=== PATIENT | female | born 1995 | race Hispanic/Latino ===

== ENCOUNTER 2022-12-11 21:09 | Inpatient (IN) | payer OTHER ==
[~2022-12-11] VITALS: Ht 162.6 cm; Wt 57.4 kg
[2022-12-11] MEDS ORDERED: 0.9%NACL 1000ML 1,000 ML IV SCH (22:00)
[2022-12-11 22:11] LABS: BASOPHILS % (AUTO) 0.5 % (0.0-5.0); EOSINOPHILS % (AUTO) 0.2 % (0.0-8.0); HEMATOCRIT 41.3 % (36-48); LYMPHOCYTES % (AUTO) 20.6 % (21.0-51.0); MEAN CORPUSCULAR HGB CONC 32.4 g/dL (32.0-36.0); MEAN CORPUSCULAR VOLUME 83.3 fL (79-99); MONOCYTES % (AUTO) 6.8 % (3.0-13.0); NEUTROPHILS % (AUTO) 71.6 % (40.0-77.0); PLATELET COUNT (AUTO) 345 K/uL (130-400); RED BLOOD CELL COUNT(AUTO) 4.96 MIL/uL (4.00-5.50); RED CELL DISTRIBUTION WIDTH 14.3 % (11.0-15.5); WHITE BLOOD COUNT (AUTO) 8.6 K/uL (4.8-10.8)
[2022-12-11 22:15] LABS: BILIRUBIN,URINE NEGATIVE (NEGATIVE); COLOR,URINE YELLOW (YELLOW); GLUCOSE, URINE (UA) NEGATIVE (NEGATIVE); KETONES,URINE 60 mg/dL (NEGATIVE); LEUKOCYTE ESTERASE ,URINE 500 Leu/uL (NEGATIVE); NITRATE,URINE NEGATIVE (NEGATIVE); OCCULT BLOOD,URINE NEGATIVE (NEGATIVE); PROTEIN,URINE 30 mg/dL (NEGATIVE); UROBILINOGEN,URINE 0.2 mg/dL (0.2-1.0)
[2022-12-11 22:19] LABS: HCG,QUALITATIVE URINE NEGATIVE (NEGATIVE)
[2022-12-11 22:20] LABS: APPEARANCE,URINE SLIGHTLY CLOUDY (CLEAR)
[2022-12-11 22:21] LABS: AMPHET/METH SCREEN,URINE NEGATIVE (NEGATIVE); BARBITURATE SCREEN, URINE NEGATIVE (NEGATIVE); BENZODIAZEPINES SCREEN,URINE NEGATIVE (NEGATIVE); CANNABINOID SCREEN,URINE POSITIVE (NEGATIVE); CARBON DIOXIDE 25 mmol/L (21-32); CHLORIDE 101 mmol/L (101-111); COCAINE SCREEN,URINE NEGATIVE (NEGATIVE); CREATININE 0.7 mg/dL (0.5-1.5); GLOMERULAR FILTR. RATE CALC 120 mL/min (>90); GLUCOSE,RANDOM 104 mg/dL (70-105); OPIATE SCREEN,URINE NEGATIVE (NEGATIVE); PHENCYCLIDINE SCREEN,URINE NEGATIVE (NEGATIVE); POTASSIUM 3.4 mmol/L (3.5-5.1); SODIUM SERUM 138 mmol/L (136-145); UREA NITROGEN, BLOOD 8 mg/dL (7-18)
[2022-12-11 22:24] LABS: BACTERIA,URINE RARE /HPF (None Seen); MUCUS,URINE MANY LPF (None Seen); SQUAMOUS EPITHELIAL CELL,UR MANY /HPF (0-2); WBC,URINE 26-50 /HPF (0-1)
[2022-12-11 22:39] LABS: ALANINE AMINOTRANSFERASE 31 U/L (12-78); ALBUMIN 4.6 g/dL (3.5-5.0); ASPARTATE AMINOTRANSFERASE 19 U/L (10-37); TOTAL PROTEIN, SERUM 8.8 g/dL (6.0-8.3)
[2022-12-11 22:44] LABS: CRP QUANTITATIVE < 2.00 mg/L (0.00-9.0)
[2022-12-12] MEDS ORDERED: KETOROLAC 30MG VIAL (30MG/ML) IVP ONE
[2022-12-12] MEDS ORDERED: ACETAMINOPHEN 325 MG TAB PO PRN (01:30)
[2022-12-12] MEDS ORDERED: CEFTRIAXONE 1G VIAL IVPB SCH (01:30)
[2022-12-12] MEDS: 0.9%NACL 1000ML 1,000 ML IV SCH ×3 (01:37→20:21)
[2022-12-12 05:08] VITALS: BP 121/77
[2022-12-12 06:48] LABS: INR 1.01 (0.85-1.15)
[2022-12-12 06:49] LABS: PARTIAL THROMBOPLASTIN TIME 26.2 SEC (26.3-35.5)
[2022-12-12 08:00] VITALS: BP 117/68
[2022-12-12] MEDS ORDERED: SOLU-MEDROL 40MG VIAL IVP SCH (08:00)
[2022-12-12] MEDS ORDERED: AMPICILLIN 2GM+NS 100ML IV SCH (08:00)
[2022-12-12] MEDS ORDERED: 0.9% NACL 250ML IV SCH (08:00)
[2022-12-12] MEDS ORDERED: VANCOMYCIN 1G VIAL IVPB SCH (08:00)
[2022-12-12] MEDS ORDERED: VANCOMYCIN 1G/250ML KIT 250 ML IV SCH (09:00)
[2022-12-12] MEDS: CEFTRIAXONE 2GM VIAL IVPB SCH ×2 (09:16→09:17)
[2022-12-12] MEDS: FAMOTIDINE 20MG TAB PO SCH ×2 (09:16→20:21)
[2022-12-12] MEDS: AMPICILLIN 2GM+NS 100ML 100 ML IV SCH ×2 (09:21→12:46)
[2022-12-12] MEDS: MORPHINE 2 MG SYG IV PRN (10:35)
[2022-12-12 11:35] VITALS: BP 114/61
[2022-12-12 12:56] LABS: RED BLOOD CELL1,CSF 15203 CMM (0-0); WHITE BLOOD CELL1,CSF 1611 CMM (0-5)
[2022-12-12 13:12] LABS: CSF TOTAL VOLUME 6.5 mL; CSF TUBE NUMBER 1; GLUCOSE, CSF 26 mg/dL (40-70); TOTAL PROTEIN, CSF 147 mg/dL (15-45)
[2022-12-12 13:13] LABS: APPEARANCE,CSF HAZY (CLEAR); APPEARANCE2,CSF HAZY (CLEAR); COLOR,CSF PINK (COLORLESS); COLOR2,CSF PINK (COLORLESS); CSF 2ND TUBE NUMBER 3
[2022-12-12] MEDS ORDERED: [UNRECOGNIZED DRUG - REMARK] MISC SCH (14:00)
[2022-12-12 14:20] LABS: LYMPHOCYTES1,CSF 88 %; MONOCYTES1,CSF 11 %; NEUTROPHILS1,CSF 1 %
[2022-12-12 14:21] LABS: CSF LYMPHOCYTES2 83 %; MONOCYTES2,CSF 16 %; NEUTROPHILS2,CSF 1 %
[2022-12-12 14:24] VITALS: BP 115/53
[2022-12-12] MEDS ORDERED: PHARMACY COMMUNICATION MISC SCH (14:30)
[2022-12-12 15:24] VITALS: BP 121/64
[2022-12-12] MEDS: AMPHOTERICIN B LIPOSOME IV SCH (17:23)
[2022-12-12] MEDS: DEXTROSE 5% IV SCH (17:23)
[2022-12-12] MEDS: WATER IV SCH (17:23)
[2022-12-12 20:00] VITALS: BP 120/69
[2022-12-13] VITALS: BP 97/65
[2022-12-13] MEDS ORDERED: CEFTRIAXONE 2GM VIAL IVPB SCH (01:30)
[2022-12-13] MEDS: MORPHINE 2 MG SYG IV PRN ×2 (02:22→08:06)
[2022-12-13 04:00] VITALS: BP 100/56
[2022-12-13 05:54] LABS: BASOPHILS % (AUTO) 0.4 % (0.0-5.0); EOSINOPHILS % (AUTO) 0.2 % (0.0-8.0); LYMPHOCYTES % (AUTO) 16.9 % (21.0-51.0); MEAN CORPUSCULAR HEMOGLOBIN 27.5 pg (27.0-33.0); MEAN CORPUSCULAR HGB CONC 31.8 g/dL (32.0-36.0); MEAN CORPUSCULAR VOLUME 86.5 fL (79-99); NEUTROPHILS % (AUTO) 71.3 % (40.0-77.0); PLATELET COUNT (AUTO) 227 K/uL (130-400); RED BLOOD CELL COUNT(AUTO) 3.93 MIL/uL (4.00-5.50); RED CELL DISTRIBUTION WIDTH 14.3 % (11.0-15.5); WHITE BLOOD COUNT (AUTO) 9.6 K/uL (4.8-10.8)
[2022-12-13 06:21] LABS: ALBUMIN 3.1 g/dL (3.5-5.0); CREATININE 0.6 mg/dL (0.5-1.5); MAGNESIUM 1.8 mg/dL (1.80-2.40); POTASSIUM 3.4 mmol/L (3.5-5.1); TOTAL PROTEIN, SERUM 6.3 g/dL (6.0-8.3)
[2022-12-13] MEDS: 0.9%NACL 1000ML 1,000 ML IV SCH (06:37)
[2022-12-13] MEDS: FAMOTIDINE 20MG TAB PO SCH ×2 (07:57→20:31)
[2022-12-13 08:00] VITALS: BP 111/67
[2022-12-13] MEDS: MAGNESIUM 2GM PREMIX 50ML 50 ML IV PRN (10:53)
[2022-12-13] MEDS: HYDROMORPHONE 0.5 MG SYG (0.5MG/0.5ML) IVP PRN ×2 (11:24→17:55)
[2022-12-13 11:39] VITALS: BP 120/76
[2022-12-13] MEDS: KCL 20 MEQ ERTAB PO PRN ×2 (13:15→17:14)
[2022-12-13] MEDS: HYDROCODONE/ACETAMINOPHEN 5/325 MG TAB PO PRN (13:25)
[2022-12-13 16:00] VITALS: BP 108/63
[2022-12-13] MEDS: AMPHOTERICIN B LIPOSOME IV SCH (17:14)
[2022-12-13] MEDS: WATER IV SCH (17:14)
[2022-12-13] MEDS: DEXTROSE 5% IV SCH (17:14)
[2022-12-13 20:00] VITALS: BP 109/74
[2022-12-14] VITALS (7 sets, daily range): BP systolic 93–117; BP diastolic 36–70
[2022-12-14] MEDS: 0.9%NACL 1000ML 1,000 ML IV SCH ×3 (02:03→23:37)
[2022-12-14] MEDS: HYDROMORPHONE 0.5 MG SYG (0.5MG/0.5ML) IVP PRN ×3 (03:28→20:53)
[2022-12-14 05:30] LABS: BASOPHILS % (AUTO) 0.3 % (0.0-5.0); EOSINOPHILS % (AUTO) 0.4 % (0.0-8.0); HEMATOCRIT 33.7 % (36-48); LYMPHOCYTES % (AUTO) 14.8 % (21.0-51.0); MEAN CORPUSCULAR HGB CONC 31.8 g/dL (32.0-36.0); MEAN CORPUSCULAR VOLUME 85.1 fL (79-99); MONOCYTES % (AUTO) 16.6 % (3.0-13.0); NEUTROPHILS % (AUTO) 67.6 % (40.0-77.0); PLATELET COUNT (AUTO) 228 K/uL (130-400); RED BLOOD CELL COUNT(AUTO) 3.96 MIL/uL (4.00-5.50); RED CELL DISTRIBUTION WIDTH 14.2 % (11.0-15.5); WHITE BLOOD COUNT (AUTO) 7.2 K/uL (4.8-10.8)
[2022-12-14 05:40] LABS: ALBUMIN 3.2 g/dL (3.5-5.0); CREATININE 0.7 mg/dL (0.5-1.5); MAGNESIUM 2.2 mg/dL (1.80-2.40); POTASSIUM 3.4 mmol/L (3.5-5.1); TOTAL PROTEIN, SERUM 6.4 g/dL (6.0-8.3)
[2022-12-14] MEDS: KCL 20 MEQ ERTAB PO PRN ×2 (05:50→08:41)
[2022-12-14] MEDS: FAMOTIDINE 20MG TAB PO SCH ×2 (08:41→19:45)
[2022-12-14] MEDS: VORICONAZOLE 200 MG TABLET PO SCH (14:05)
[2022-12-14] MEDS: HYDROCODONE/ACETAMINOPHEN 5/325 MG TAB PO PRN ×2 (14:11→23:53)
[2022-12-14] MEDS: DEXTROSE 5% IV SCH (17:24)
[2022-12-14] MEDS: AMPHOTERICIN B LIPOSOME IV SCH (17:24)
[2022-12-14] MEDS: WATER IV SCH (17:24)
[2022-12-15] VITALS (7 sets, daily range): BP systolic 84–116; BP diastolic 43–67
[2022-12-15] MEDS: VORICONAZOLE 200 MG TABLET PO SCH ×2 (01:25→13:53)
[2022-12-15 06:14] LABS: BASOPHILS % (AUTO) 0.4 % (0.0-5.0); EOSINOPHILS % (AUTO) 0.9 % (0.0-8.0); HEMATOCRIT 33.3 % (36-48); LYMPHOCYTES % (AUTO) 21.9 % (21.0-51.0); MEAN CORPUSCULAR HEMOGLOBIN 27.5 pg (27.0-33.0); MEAN CORPUSCULAR HGB CONC 31.8 g/dL (32.0-36.0); MEAN CORPUSCULAR VOLUME 86.3 fL (79-99); MONOCYTES % (AUTO) 14.2 % (3.0-13.0); NEUTROPHILS % (AUTO) 62.3 % (40.0-77.0); PLATELET COUNT (AUTO) 232 K/uL (130-400); RED BLOOD CELL COUNT(AUTO) 3.86 MIL/uL (4.00-5.50); RED CELL DISTRIBUTION WIDTH 14.4 % (11.0-15.5)
[2022-12-15 06:32] LABS: CREATININE 0.6 mg/dL (0.5-1.5); POTASSIUM 3.4 mmol/L (3.5-5.1); TOTAL PROTEIN, SERUM 6.2 g/dL (6.0-8.3)
[2022-12-15] MEDS: FAMOTIDINE 20MG TAB PO SCH ×2 (08:25→21:23)
[2022-12-15] MEDS: HYDROMORPHONE 0.5 MG SYG (0.5MG/0.5ML) IVP PRN ×2 (10:37→21:38)
[2022-12-15] MEDS: WATER IV SCH (17:13)
[2022-12-15] MEDS: DEXTROSE 5% IV SCH (17:13)
[2022-12-15] MEDS: AMPHOTERICIN B LIPOSOME IV SCH (17:13)
[2022-12-15] MEDS: KCL 20 MEQ ERTAB PO PRN ×2 (18:35→21:25)
[2022-12-15] MEDS: 0.9%NACL 1000ML 1,000 ML IV SCH (21:25)
[2022-12-16] MEDS: LACTULOSE 20 GM/30 ML UDCUP PO PRN (00:11)
[2022-12-16] MEDS: VORICONAZOLE 200 MG TABLET PO SCH ×2 (02:00→15:28)
[2022-12-16 03:46] VITALS: BP 110/60
[2022-12-16 05:20] LABS: BASOPHILS % (AUTO) 0.3 % (0.0-5.0); EOSINOPHILS % (AUTO) 0.9 % (0.0-8.0); HEMATOCRIT 31.4 % (36-48); LYMPHOCYTES % (AUTO) 19.8 % (21.0-51.0); MEAN CORPUSCULAR HEMOGLOBIN 27.5 pg (27.0-33.0); MEAN CORPUSCULAR HGB CONC 32.5 g/dL (32.0-36.0); MEAN CORPUSCULAR VOLUME 84.6 fL (79-99); MONOCYTES % (AUTO) 15.9 % (3.0-13.0); NEUTROPHILS % (AUTO) 62.8 % (40.0-77.0); PLATELET COUNT (AUTO) 241 K/uL (130-400); RED BLOOD CELL COUNT(AUTO) 3.71 MIL/uL (4.00-5.50); RED CELL DISTRIBUTION WIDTH 14.3 % (11.0-15.5); WHITE BLOOD COUNT (AUTO) 7.4 K/uL (4.8-10.8)
[2022-12-16 05:36] LABS: ALBUMIN 2.7 g/dL (3.5-5.0); CREATININE 0.6 mg/dL (0.5-1.5); MAGNESIUM 1.8 mg/dL (1.80-2.40); POTASSIUM 3.2 mmol/L (3.5-5.1)
[2022-12-16] MEDS: HYDROMORPHONE 0.5 MG SYG (0.5MG/0.5ML) IVP PRN ×3 (07:40→22:19)
[2022-12-16] MEDS: ACETAMINOPHEN 325 MG TAB PO PRN (07:40)
[2022-12-16] MEDS: FAMOTIDINE 20MG TAB PO SCH ×2 (07:40→22:06)
[2022-12-16 08:00] VITALS: BP 102/50
[2022-12-16 11:37] VITALS: BP 98/54
[2022-12-16] MEDS: KCL 20 MEQ ERTAB PO PRN ×3 (15:28→22:20)
[2022-12-16] MEDS: 0.9%NACL 1000ML 1,000 ML IV SCH (15:29)
[2022-12-16 16:33] VITALS: BP 110/79
[2022-12-16] MEDS: MAGNESIUM 2GM PREMIX 50ML 50 ML IV PRN ×2 (17:13→22:20)
[2022-12-16] MEDS: AMPHOTERICIN B LIPOSOME IV SCH (17:33)
[2022-12-16] MEDS: DEXTROSE 5% IV SCH (17:33)
[2022-12-16] MEDS: WATER IV SCH (17:33)
[2022-12-16 20:00] VITALS: BP 111/57
[2022-12-16] MEDS: HYDROCODONE/ACETAMINOPHEN 5/325 MG TAB PO PRN (20:24)
[2022-12-17] VITALS (7 sets, daily range): BP systolic 88–152; BP diastolic 53–71
[2022-12-17] MEDS: VORICONAZOLE 200 MG TABLET PO SCH ×2 (02:21→13:16)
[2022-12-17] MEDS: HYDROCODONE/ACETAMINOPHEN 5/325 MG TAB PO PRN ×2 (02:21→08:08)
[2022-12-17] MEDS: HYDROMORPHONE 0.5 MG SYG (0.5MG/0.5ML) IVP PRN ×2 (04:22→20:35)
[2022-12-17 05:56] LABS: BASOPHILS % (AUTO) 0.4 % (0.0-5.0); EOSINOPHILS % (AUTO) 0.4 % (0.0-8.0); HEMATOCRIT 32.6 % (36-48); LYMPHOCYTES % (AUTO) 12.4 % (21.0-51.0); MEAN CORPUSCULAR HEMOGLOBIN 27.2 pg (27.0-33.0); MEAN CORPUSCULAR HGB CONC 31.6 g/dL (32.0-36.0); MEAN CORPUSCULAR VOLUME 86.2 fL (79-99); MONOCYTES % (AUTO) 11.4 % (3.0-13.0); NEUTROPHILS % (AUTO) 74.9 % (40.0-77.0); PLATELET COUNT (AUTO) 260 K/uL (130-400); RED BLOOD CELL COUNT(AUTO) 3.78 MIL/uL (4.00-5.50); RED CELL DISTRIBUTION WIDTH 14.2 % (11.0-15.5); WHITE BLOOD COUNT (AUTO) 7.7 K/uL (4.8-10.8)
[2022-12-17] MEDS: ONDANSETRON 4MG INJ IV PRN (06:00)
[2022-12-17 06:19] LABS: ALBUMIN 2.8 g/dL (3.5-5.0); CREATININE 0.6 mg/dL (0.5-1.5); MAGNESIUM 2.2 mg/dL (1.80-2.40); POTASSIUM 3.3 mmol/L (3.5-5.1); TOTAL PROTEIN, SERUM 6.1 g/dL (6.0-8.3)
[2022-12-17] MEDS: KCL 20 MEQ ERTAB PO PRN ×2 (06:45→13:17)
[2022-12-17] MEDS: FAMOTIDINE 20MG TAB PO SCH ×2 (08:07→20:30)
[2022-12-17] MEDS: 0.9%NACL 1000ML 1,000 ML IV SCH (10:46)
[2022-12-17] MEDS: WATER IV SCH (16:48)
[2022-12-17] MEDS: DEXTROSE 5% IV SCH (16:48)
[2022-12-17] MEDS: AMPHOTERICIN B LIPOSOME IV SCH (16:48)
[2022-12-18] MEDS: VORICONAZOLE 200 MG TABLET PO SCH ×2 (01:48→14:08)
[2022-12-18] MEDS: HYDROCODONE/ACETAMINOPHEN 5/325 MG TAB PO PRN ×2 (01:48→19:58)
[2022-12-18] MEDS: 0.9%NACL 1000ML 1,000 ML IV SCH (03:28)
[2022-12-18 04:00] VITALS: BP 110/60
[2022-12-18 05:52] LABS: BASOPHILS % (AUTO) 0.3 % (0.0-5.0); HEMATOCRIT 30.7 % (36-48); LYMPHOCYTES % (AUTO) 24.5 % (21.0-51.0); MEAN CORPUSCULAR HEMOGLOBIN 27.8 pg (27.0-33.0); MEAN CORPUSCULAR HGB CONC 32.6 g/dL (32.0-36.0); MEAN CORPUSCULAR VOLUME 85.3 fL (79-99); MONOCYTES % (AUTO) 15.3 % (3.0-13.0); NEUTROPHILS % (AUTO) 58.4 % (40.0-77.0); PLATELET COUNT (AUTO) 240 K/uL (130-400); RED CELL DISTRIBUTION WIDTH 14.4 % (11.0-15.5); WHITE BLOOD COUNT (AUTO) 5.8 K/uL (4.8-10.8)
[2022-12-18 06:08] LABS: ALBUMIN 2.7 g/dL (3.5-5.0); CREATININE 0.7 mg/dL (0.5-1.5); MAGNESIUM 1.8 mg/dL (1.80-2.40); POTASSIUM 3.1 mmol/L (3.5-5.1); TOTAL PROTEIN, SERUM 5.8 g/dL (6.0-8.3)
[2022-12-18] MEDS: MAGNESIUM 2GM PREMIX 50ML 50 ML IV PRN (06:48)
[2022-12-18] MEDS: KCL 20 MEQ ERTAB PO PRN ×3 (06:49→10:42)
[2022-12-18] MEDS: HYDROMORPHONE 0.5 MG SYG (0.5MG/0.5ML) IVP PRN ×2 (06:56→10:42)
[2022-12-18 08:09] VITALS: BP 111/63
[2022-12-18] MEDS: FAMOTIDINE 20MG TAB PO SCH ×2 (08:39→19:50)
[2022-12-18 12:24] VITALS: BP 109/68
[2022-12-18] MEDS: KETOROLAC 30MG VIAL (30MG/ML) IVP PRN (14:35)
[2022-12-18 16:00] VITALS: BP 117/69
[2022-12-18] MEDS: DEXTROSE 5% IV SCH (18:01)
[2022-12-18] MEDS: AMPHOTERICIN B LIPOSOME IV SCH (18:01)
[2022-12-18] MEDS: WATER IV SCH (18:01)
[2022-12-18 19:09] VITALS: BP 99/65
[2022-12-18] MEDS ORDERED: TOPIRAMATE 25 MG TABLET PO SCH (21:00)
[2022-12-18 23:09] VITALS: BP 117/68
[2022-12-19] VITALS (15 sets, daily range): BP systolic 95–127; BP diastolic 46–79
[2022-12-19] MEDS: VORICONAZOLE 200 MG TABLET PO SCH ×2 (01:47→15:04)
[2022-12-19 05:41] LABS: BASOPHILS % (AUTO) 0.4 % (0.0-5.0); EOSINOPHILS % (AUTO) 1.9 % (0.0-8.0); HEMATOCRIT 30.3 % (36-48); LYMPHOCYTES % (AUTO) 21.7 % (21.0-51.0); MEAN CORPUSCULAR HEMOGLOBIN 27.5 pg (27.0-33.0); MEAN CORPUSCULAR HGB CONC 32.3 g/dL (32.0-36.0); MEAN CORPUSCULAR VOLUME 85.1 fL (79-99); MONOCYTES % (AUTO) 15.6 % (3.0-13.0); PLATELET COUNT (AUTO) 248 K/uL (130-400); RED BLOOD CELL COUNT(AUTO) 3.56 MIL/uL (4.00-5.50); RED CELL DISTRIBUTION WIDTH 14.2 % (11.0-15.5); WHITE BLOOD COUNT (AUTO) 6.7 K/uL (4.8-10.8)
[2022-12-19 05:56] LABS: CREATININE 0.9 mg/dL (0.5-1.5); MAGNESIUM 1.9 mg/dL (1.80-2.40); POTASSIUM 3.3 mmol/L (3.5-5.1)
[2022-12-19] MEDS: 0.9%NACL 1000ML 1,000 ML IV SCH ×2 (06:20→21:55)
[2022-12-19] MEDS: MAGNESIUM 2GM PREMIX 50ML 50 ML IV PRN (06:20)
[2022-12-19] MEDS: KETOROLAC 30MG VIAL (30MG/ML) IVP PRN (06:24)
[2022-12-19] MEDS ORDERED: GADOTERATE MEGLUMINE 10 MMOL/20 ML VIAL IV ONE (09:14)
[2022-12-19] MEDS: HYDROCODONE/ACETAMINOPHEN 5/325 MG TAB PO PRN ×2 (11:32→19:49)
[2022-12-19] MEDS: FAMOTIDINE 20MG TAB PO SCH ×2 (11:33→19:49)
[2022-12-19 12:03] LABS: APPEARANCE,CSF CLEAR (CLEAR); COLOR,CSF YELLOW (COLORLESS); CSF TUBE NUMBER 1
[2022-12-19 12:05] LABS: RED BLOOD CELL1,CSF 215 CMM (0-0); WHITE BLOOD CELL1,CSF 1037 CMM (0-5)
[2022-12-19 12:07] LABS: GLUCOSE, CSF 24 mg/dL (40-70); TOTAL PROTEIN, CSF 143 mg/dL (15-45)
[2022-12-19 13:12] LABS: LYMPHOCYTES1,CSF 58 %; MONOCYTES1,CSF 14 %; NEUTROPHILS1,CSF 21 %
[2022-12-19] MEDS: WATER IV SCH (16:59)
[2022-12-19] MEDS: DEXTROSE 5% IV SCH (16:59)
[2022-12-19] MEDS: AMPHOTERICIN B LIPOSOME IV SCH (16:59)
[2022-12-19] MEDS: KCL 20 MEQ ERTAB PO PRN (19:03)
[2022-12-19] MEDS: TOPIRAMATE 25 MG TABLET PO SCH (19:49)
[2022-12-20] MEDS: VORICONAZOLE 200 MG TABLET PO SCH ×2 (02:27→13:12)
[2022-12-20] MEDS: KCL 20 MEQ ERTAB PO PRN ×4 (02:30→17:49)
[2022-12-20 02:59] VITALS: BP 120/65
[2022-12-20 06:07] LABS: HEMATOCRIT 30.3 % (36-48); MEAN CORPUSCULAR HGB CONC 32.3 g/dL (32.0-36.0); MEAN CORPUSCULAR VOLUME 83.5 fL (79-99); RED BLOOD CELL COUNT(AUTO) 3.63 MIL/uL (4.00-5.50); RED CELL DISTRIBUTION WIDTH 14.3 % (11.0-15.5); WHITE BLOOD COUNT (AUTO) 6.2 K/uL (4.8-10.8)
[2022-12-20 06:16] LABS: CREATININE 0.8 mg/dL (0.5-1.5); MAGNESIUM 1.9 mg/dL (1.80-2.40); POTASSIUM 3.2 mmol/L (3.5-5.1)
[2022-12-20 08:00] VITALS: BP 114/55
[2022-12-20] MEDS: FAMOTIDINE 20MG TAB PO SCH ×2 (09:14→19:23)
[2022-12-20] MEDS: KETOROLAC 30MG VIAL (30MG/ML) IVP PRN ×2 (09:22→17:50)
[2022-12-20 11:51] VITALS: BP 105/61
[2022-12-20 16:00] VITALS: BP 110/63
[2022-12-20] MEDS: AMPHOTERICIN B LIPOSOME IV SCH (17:46)
[2022-12-20] MEDS: WATER IV SCH (17:46)
[2022-12-20] MEDS: DEXTROSE 5% IV SCH (17:46)
[2022-12-20] MEDS: 0.9%NACL 1000ML 1,000 ML IV SCH (18:46)
[2022-12-20] MEDS: TOPIRAMATE 25 MG TABLET PO SCH (19:23)
[2022-12-20 20:00] VITALS: BP 107/50
[2022-12-21] VITALS: BP 110/59
[2022-12-21] MEDS: VORICONAZOLE 200 MG TABLET PO SCH ×2 (01:52→14:16)
[2022-12-21 04:00] VITALS: BP 110/63
[2022-12-21 06:21] LABS: BASOPHILS % (AUTO) 0.3 % (0.0-5.0); EOSINOPHILS % (AUTO) 0.9 % (0.0-8.0); HEMATOCRIT 29.9 % (36-48); LYMPHOCYTES % (AUTO) 17.7 % (21.0-51.0); MEAN CORPUSCULAR HEMOGLOBIN 27.2 pg (27.0-33.0); MEAN CORPUSCULAR HGB CONC 33.1 g/dL (32.0-36.0); MEAN CORPUSCULAR VOLUME 82.1 fL (79-99); MONOCYTES % (AUTO) 13.4 % (3.0-13.0); NEUTROPHILS % (AUTO) 67.4 % (40.0-77.0); PLATELET COUNT (AUTO) 258 K/uL (130-400); RED BLOOD CELL COUNT(AUTO) 3.64 MIL/uL (4.00-5.50); RED CELL DISTRIBUTION WIDTH 14.1 % (11.0-15.5); WHITE BLOOD COUNT (AUTO) 6.6 K/uL (4.8-10.8)
[2022-12-21 06:39] LABS: ALBUMIN 2.9 g/dL (3.5-5.0); CREATININE 0.8 mg/dL (0.5-1.5); POTASSIUM 3.2 mmol/L (3.5-5.1)
[2022-12-21 08:00] VITALS: BP 113/58
[2022-12-21] MEDS: FAMOTIDINE 20MG TAB PO SCH ×2 (08:43→21:54)
[2022-12-21] MEDS: KCL 20 MEQ ERTAB PO PRN ×3 (08:45→14:16)
[2022-12-21] MEDS: ACETAMINOPHEN 325 MG TAB PO PRN ×2 (11:38→17:44)
[2022-12-21 11:52] VITALS: BP 110/51
[2022-12-21 16:00] VITALS: BP 120/64
[2022-12-21] MEDS: DEXTROSE 5% IV SCH (17:37)
[2022-12-21] MEDS: WATER IV SCH (17:37)
[2022-12-21] MEDS: AMPHOTERICIN B LIPOSOME IV SCH (17:37)
[2022-12-21] MEDS: 0.9%NACL 1000ML 1,000 ML IV SCH (17:44)
[2022-12-21 20:00] VITALS: BP 115/66
[2022-12-21] MEDS: HYDROCODONE/ACETAMINOPHEN 5/325 MG TAB PO PRN (21:54)
[2022-12-21] MEDS: TOPIRAMATE 25 MG TABLET PO SCH (21:54)
[2022-12-22] VITALS (7 sets, daily range): BP systolic 100–127; BP diastolic 55–77
[2022-12-22] MEDS: VORICONAZOLE 200 MG TABLET PO SCH ×2 (02:20→14:04)
[2022-12-22 05:38] LABS: CREATININE 0.8 mg/dL (0.5-1.5); MAGNESIUM 1.5 mg/dL (1.80-2.40); POTASSIUM 3.1 mmol/L (3.5-5.1)
[2022-12-22] MEDS: MAGNESIUM 2GM PREMIX 50ML 50 ML IV PRN (05:54)
[2022-12-22] MEDS: KCL 20 MEQ ERTAB PO PRN ×3 (05:55→12:11)
[2022-12-22] MEDS: KETOROLAC 30MG VIAL (30MG/ML) IVP PRN (06:09)
[2022-12-22] MEDS: FAMOTIDINE 20MG TAB PO SCH ×2 (08:36→21:12)
[2022-12-22] MEDS: 0.9%NACL 1000ML 1,000 ML IV SCH (12:10)
[2022-12-22] MEDS: WATER IV SCH (17:12)
[2022-12-22] MEDS: DEXTROSE 5% IV SCH (17:12)
[2022-12-22] MEDS: AMPHOTERICIN B LIPOSOME IV SCH (17:12)
[2022-12-22] MEDS: TOPIRAMATE 25 MG TABLET PO SCH (21:12)
[2022-12-22] MEDS: HYDROCODONE/ACETAMINOPHEN 5/325 MG TAB PO PRN (21:13)
[2022-12-23] MEDS: VORICONAZOLE 200 MG TABLET PO SCH ×2 (02:42→11:03)
[2022-12-23 03:57] VITALS: BP 116/66
[2022-12-23 05:17] LABS: BASOPHILS % (AUTO) 0.6 % (0.0-5.0); EOSINOPHILS % (AUTO) 1.3 % (0.0-8.0); HEMATOCRIT 29.5 % (36-48); LYMPHOCYTES % (AUTO) 26.3 % (21.0-51.0); MEAN CORPUSCULAR HEMOGLOBIN 26.8 pg (27.0-33.0); MEAN CORPUSCULAR HGB CONC 32.5 g/dL (32.0-36.0); MEAN CORPUSCULAR VOLUME 82.4 fL (79-99); MONOCYTES % (AUTO) 15.4 % (3.0-13.0); NEUTROPHILS % (AUTO) 56.2 % (40.0-77.0); PLATELET COUNT (AUTO) 249 K/uL (130-400); RED BLOOD CELL COUNT(AUTO) 3.58 MIL/uL (4.00-5.50); RED CELL DISTRIBUTION WIDTH 14.1 % (11.0-15.5); WHITE BLOOD COUNT (AUTO) 5.3 K/uL (4.8-10.8)
[2022-12-23 05:36] LABS: ALBUMIN 2.9 g/dL (3.5-5.0); CREATININE 0.7 mg/dL (0.5-1.5); TOTAL PROTEIN, SERUM 6.1 g/dL (6.0-8.3)
[2022-12-23 05:45] LABS: POTASSIUM 2.9 mmol/L (3.5-5.1)
[2022-12-23] MEDS: POTASSIUM CHLORIDE 20MEQ/100ML 100 ML IV PRN (06:22)
[2022-12-23] MEDS: 0.9%NACL 1000ML 1,000 ML IV SCH (06:34)
[2022-12-23 08:00] VITALS: BP 98/55
[2022-12-23] MEDS: FAMOTIDINE 20MG TAB PO SCH ×2 (11:02→21:27)
[2022-12-23] MEDS: KCL 20 MEQ ERTAB PO PRN (11:03)
[2022-12-23 12:00] VITALS: BP 97/50
[2022-12-23] MEDS ORDERED: KCL 20 MEQ ERTAB PO ONE (12:00)
[2022-12-23 16:00] VITALS: BP 120/68
[2022-12-23] MEDS: WATER IV SCH (17:15)
[2022-12-23] MEDS: DEXTROSE 5% IV SCH (17:15)
[2022-12-23] MEDS: AMPHOTERICIN B LIPOSOME IV SCH (17:15)
[2022-12-23 20:15] VITALS: BP 111/58
[2022-12-23] MEDS: TOPIRAMATE 25 MG TABLET PO SCH (21:27)
[2022-12-24 00:07] VITALS: BP 126/76
[2022-12-24] MEDS: VORICONAZOLE 200 MG TABLET PO SCH ×2 (02:15→14:10)
[2022-12-24] MEDS: 0.9%NACL 1000ML 1,000 ML IV SCH ×2 (02:46→09:38)
[2022-12-24 04:27] VITALS: BP 101/55
[2022-12-24 05:29] LABS: BASOPHILS % (AUTO) 0.6 % (0.0-5.0); EOSINOPHILS % (AUTO) 1.5 % (0.0-8.0); HEMATOCRIT 29.9 % (36-48); LYMPHOCYTES % (AUTO) 29.1 % (21.0-51.0); MEAN CORPUSCULAR HEMOGLOBIN 26.9 pg (27.0-33.0); MEAN CORPUSCULAR HGB CONC 32.4 g/dL (32.0-36.0); MEAN CORPUSCULAR VOLUME 83.1 fL (79-99); MONOCYTES % (AUTO) 17.4 % (3.0-13.0); NEUTROPHILS % (AUTO) 50.8 % (40.0-77.0); PLATELET COUNT (AUTO) 257 K/uL (130-400); RED CELL DISTRIBUTION WIDTH 14.3 % (11.0-15.5); WHITE BLOOD COUNT (AUTO) 5.2 K/uL (4.8-10.8)
[2022-12-24 05:41] LABS: ALBUMIN 2.7 g/dL (3.5-5.0); CREATININE 0.7 mg/dL (0.5-1.5); POTASSIUM 3.3 mmol/L (3.5-5.1)
[2022-12-24] MEDS: KCL 20 MEQ ERTAB PO PRN ×3 (06:23→09:41)
[2022-12-24 08:00] VITALS: BP 145/62
[2022-12-24] MEDS: FAMOTIDINE 20MG TAB PO SCH ×2 (09:35→19:59)
[2022-12-24 10:13] LABS: PROTHROMBIN TIME 10.9 SEC (9.6-11.6)
[2022-12-24 10:15] LABS: PARTIAL THROMBOPLASTIN TIME 25.6 SEC (26.3-35.5)
[2022-12-24 12:00] VITALS: BP 117/73
[2022-12-24 15:57] VITALS: BP 123/68
[2022-12-24] MEDS: AMPHOTERICIN B LIPOSOME IV SCH (17:18)
[2022-12-24] MEDS: WATER IV SCH (17:18)
[2022-12-24] MEDS: DEXTROSE 5% IV SCH (17:18)
[2022-12-24] MEDS: TOPIRAMATE 25 MG TABLET PO SCH (19:59)
[2022-12-24 20:40] VITALS: BP 126/76
[2022-12-24] MEDS: ACETAMINOPHEN 325 MG TAB PO PRN (22:06)
[2022-12-25 00:20] VITALS: BP 121/64
[2022-12-25] MEDS: VORICONAZOLE 200 MG TABLET PO SCH ×2 (02:03→14:02)
[2022-12-25 03:52] VITALS: BP 113/62
[2022-12-25 05:37] LABS: BASOPHILS % (AUTO) 0.3 % (0.0-5.0); EOSINOPHILS % (AUTO) 1.6 % (0.0-8.0); HEMATOCRIT 29.5 % (36-48); LYMPHOCYTES % (AUTO) 28.6 % (21.0-51.0); MEAN CORPUSCULAR HEMOGLOBIN 27.1 pg (27.0-33.0); MEAN CORPUSCULAR HGB CONC 33.2 g/dL (32.0-36.0); MEAN CORPUSCULAR VOLUME 81.5 fL (79-99); MONOCYTES % (AUTO) 14.2 % (3.0-13.0); PLATELET COUNT (AUTO) 265 K/uL (130-400); RED BLOOD CELL COUNT(AUTO) 3.62 MIL/uL (4.00-5.50); RED CELL DISTRIBUTION WIDTH 14.3 % (11.0-15.5); WHITE BLOOD COUNT (AUTO) 5.8 K/uL (4.8-10.8)
[2022-12-25 05:49] LABS: ALBUMIN 2.7 g/dL (3.5-5.0); CREATININE 0.7 mg/dL (0.5-1.5)
[2022-12-25 05:51] LABS: POTASSIUM 2.7 mmol/L (3.5-5.1)
[2022-12-25] MEDS: 0.9%NACL 1000ML 1,000 ML IV SCH (05:53)
[2022-12-25] MEDS: POTASSIUM CHLORIDE 20MEQ/100ML 100 ML IV PRN ×2 (05:54→07:56)
[2022-12-25] MEDS: KCL 20 MEQ ERTAB PO PRN ×4 (06:00→13:07)
[2022-12-25 08:00] VITALS: BP 115/66
[2022-12-25] MEDS: ONDANSETRON 4MG INJ IV PRN (09:10)
[2022-12-25] MEDS: FAMOTIDINE 20MG TAB PO SCH ×2 (09:11→20:14)
[2022-12-25] MEDS: ACETAMINOPHEN 325 MG TAB PO PRN ×2 (10:23→20:18)
[2022-12-25 12:00] VITALS: BP 112/65
[2022-12-25 16:00] VITALS: BP 107/67
[2022-12-25] MEDS: DEXTROSE 5% IV SCH (16:50)
[2022-12-25] MEDS: AMPHOTERICIN B LIPOSOME IV SCH (16:50)
[2022-12-25] MEDS: WATER IV SCH (16:50)
[2022-12-25 20:00] VITALS: BP 133/61
[2022-12-25] MEDS: TOPIRAMATE 25 MG TABLET PO SCH (20:14)
[2022-12-26] VITALS (8 sets, daily range): BP systolic 103–131; BP diastolic 52–70
[2022-12-26] MEDS: VORICONAZOLE 200 MG TABLET PO SCH ×2 (01:14→13:04)
[2022-12-26 05:39] LABS: BASOPHILS % (AUTO) 0.4 % (0.0-5.0); HEMATOCRIT 30.4 % (36-48); LYMPHOCYTES % (AUTO) 17.6 % (21.0-51.0); MEAN CORPUSCULAR HEMOGLOBIN 26.7 pg (27.0-33.0); MEAN CORPUSCULAR HGB CONC 32.9 g/dL (32.0-36.0); MEAN CORPUSCULAR VOLUME 81.3 fL (79-99); MONOCYTES % (AUTO) 11.5 % (3.0-13.0); NEUTROPHILS % (AUTO) 69.1 % (40.0-77.0); PLATELET COUNT (AUTO) 255 K/uL (130-400); RED BLOOD CELL COUNT(AUTO) 3.74 MIL/uL (4.00-5.50); RED CELL DISTRIBUTION WIDTH 14.4 % (11.0-15.5); WHITE BLOOD COUNT (AUTO) 7.9 K/uL (4.8-10.8)
[2022-12-26 05:53] LABS: ALBUMIN 2.9 g/dL (3.5-5.0); CREATININE 0.8 mg/dL (0.5-1.5); MAGNESIUM 1.5 mg/dL (1.80-2.40); TOTAL PROTEIN, SERUM 6.4 g/dL (6.0-8.3)
[2022-12-26 05:56] LABS: POTASSIUM 2.8 mmol/L (3.5-5.1)
[2022-12-26] MEDS: POTASSIUM CHLORIDE 20MEQ/100ML 100 ML IV PRN ×2 (06:09→09:18)
[2022-12-26] MEDS: KCL 20 MEQ ERTAB PO PRN ×4 (06:10→16:15)
[2022-12-26] MEDS: MAGNESIUM 2GM PREMIX 50ML 50 ML IV PRN (06:12)
[2022-12-26] MEDS: FAMOTIDINE 20MG TAB PO SCH ×2 (09:18→20:06)
[2022-12-26] MEDS: 0.9%NACL 1000ML 1,000 ML IV SCH (15:09)
[2022-12-26] MEDS: DEXTROSE 5% IV SCH (17:14)
[2022-12-26] MEDS: AMPHOTERICIN B LIPOSOME IV SCH (17:14)
[2022-12-26] MEDS: WATER IV SCH (17:14)
[2022-12-26] MEDS: TOPIRAMATE 25 MG TABLET PO SCH (20:06)
[2022-12-27] VITALS: BP 115/68
[2022-12-27] MEDS: VORICONAZOLE 200 MG TABLET PO SCH ×2 (01:17→15:40)
[2022-12-27] MEDS: 0.9%NACL 1000ML 1,000 ML IV SCH ×2 (01:21→20:49)
[2022-12-27 04:00] VITALS: BP 114/61
[2022-12-27 05:17] LABS: BASOPHILS % (AUTO) 0.3 % (0.0-5.0); EOSINOPHILS % (AUTO) 1.2 % (0.0-8.0); HEMATOCRIT 29.3 % (36-48); LYMPHOCYTES % (AUTO) 20.8 % (21.0-51.0); MEAN CORPUSCULAR HEMOGLOBIN 26.6 pg (27.0-33.0); MEAN CORPUSCULAR HGB CONC 33.1 g/dL (32.0-36.0); MEAN CORPUSCULAR VOLUME 80.5 fL (79-99); MONOCYTES % (AUTO) 11.8 % (3.0-13.0); NEUTROPHILS % (AUTO) 65.6 % (40.0-77.0); PLATELET COUNT (AUTO) 253 K/uL (130-400); RED BLOOD CELL COUNT(AUTO) 3.64 MIL/uL (4.00-5.50); RED CELL DISTRIBUTION WIDTH 14.5 % (11.0-15.5); WHITE BLOOD COUNT (AUTO) 6.7 K/uL (4.8-10.8)
[2022-12-27 05:35] LABS: ALBUMIN 2.9 g/dL (3.5-5.0); CREATININE 0.6 mg/dL (0.5-1.5); MAGNESIUM 1.5 mg/dL (1.80-2.40); TOTAL PROTEIN, SERUM 6.2 g/dL (6.0-8.3)
[2022-12-27 05:47] LABS: POTASSIUM 2.9 mmol/L (3.5-5.1)
[2022-12-27] MEDS: POTASSIUM CHLORIDE 20MEQ/100ML 100 ML IV PRN ×2 (06:00→19:54)
[2022-12-27] MEDS: MAGNESIUM 2GM PREMIX 50ML 50 ML IV PRN (06:00)
[2022-12-27] MEDS: KCL 20 MEQ ERTAB PO PRN ×4 (06:01→15:46)
[2022-12-27 08:32] VITALS: BP 104/64
[2022-12-27] MEDS: FAMOTIDINE 20MG TAB PO SCH ×2 (09:14→19:54)
[2022-12-27 12:11] VITALS: BP 108/62
[2022-12-27 13:01] LABS: CREATININE 0.8 mg/dL (0.5-1.5)
[2022-12-27 13:08] LABS: POTASSIUM 2.9 mmol/L (3.5-5.1)
[2022-12-27 16:44] VITALS: BP 117/70
[2022-12-27] MEDS: WATER IV SCH (17:15)
[2022-12-27] MEDS: AMPHOTERICIN B LIPOSOME IV SCH (17:15)
[2022-12-27] MEDS: DEXTROSE 5% IV SCH (17:15)
[2022-12-27 18:52] LABS: CREATININE 0.8 mg/dL (0.5-1.5)
[2022-12-27 18:54] LABS: POTASSIUM 2.8 mmol/L (3.5-5.1)
[2022-12-27] MEDS: TOPIRAMATE 25 MG TABLET PO SCH (19:54)
[2022-12-27 20:00] VITALS: BP 117/68
[2022-12-28] VITALS (7 sets, daily range): BP systolic 105–115; BP diastolic 53–68
[2022-12-28] MEDS: VORICONAZOLE 200 MG TABLET PO SCH ×2 (01:03→13:34)
[2022-12-28 04:21] LABS: BASOPHILS % (AUTO) 0.4 % (0.0-5.0); EOSINOPHILS % (AUTO) 0.8 % (0.0-8.0); HEMATOCRIT 29.4 % (36-48); LYMPHOCYTES % (AUTO) 15.6 % (21.0-51.0); MEAN CORPUSCULAR HEMOGLOBIN 27.2 pg (27.0-33.0); MEAN CORPUSCULAR VOLUME 79.9 fL (79-99); MONOCYTES % (AUTO) 11.2 % (3.0-13.0); NEUTROPHILS % (AUTO) 71.9 % (40.0-77.0); PLATELET COUNT (AUTO) 239 K/uL (130-400); RED BLOOD CELL COUNT(AUTO) 3.68 MIL/uL (4.00-5.50); RED CELL DISTRIBUTION WIDTH 14.4 % (11.0-15.5)
[2022-12-28 04:26] LABS: CREATININE 0.7 mg/dL (0.5-1.5); MAGNESIUM 1.8 mg/dL (1.80-2.40)
[2022-12-28 04:37] LABS: POTASSIUM 2.8 mmol/L (3.5-5.1)
[2022-12-28] MEDS: POTASSIUM CHLORIDE 20MEQ/100ML 100 ML IV PRN ×2 (05:53→10:51)
[2022-12-28] MEDS ORDERED: POTASSIUM CHLORIDE 10% ELIXIR 20 MEQ/15 ML UDCUP PO ONE (08:00)
[2022-12-28] MEDS: MAGNESIUM 2GM PREMIX 50ML 50 ML IV PRN (08:05)
[2022-12-28] MEDS: FAMOTIDINE 20MG TAB PO SCH ×2 (08:06→20:25)
[2022-12-28] MEDS: KCL 20 MEQ ERTAB PO PRN (08:06)
[2022-12-28] MEDS ORDERED: KCL 20 MEQ ERTAB PO ONE (08:30)
[2022-12-28] MEDS: POTASSIUM CHLORIDE 10% ELIXIR 20 MEQ/15 ML UDCUP PO PRN ×3 (10:52→20:26)
[2022-12-28] MEDS ORDERED: SODIUM BICARBONATE 650 MG TAB PO SCH (12:00)
[2022-12-28] MEDS ORDERED: AMILORIDE 5MG TAB PO SCH (12:00)
[2022-12-28] MEDS: SODIUM BICARBONATE 650 MG TAB PO SCH ×2 (13:34→20:25)
[2022-12-28] MEDS: ONDANSETRON 4MG INJ IV PRN (15:16)
[2022-12-28] MEDS: WATER IV SCH (17:21)
[2022-12-28] MEDS: AMPHOTERICIN B LIPOSOME IV SCH (17:21)
[2022-12-28] MEDS: DEXTROSE 5% IV SCH (17:21)
[2022-12-28] MEDS: TOPIRAMATE 25 MG TABLET PO SCH (20:25)
[2022-12-28] MEDS: ACETAMINOPHEN 325 MG TAB PO PRN (20:30)
[2022-12-29] MEDS ORDERED: IBUPROFEN 400 MG TABLET PO ONE (01:00)
[2022-12-29] MEDS: VORICONAZOLE 200 MG TABLET PO SCH ×2 (01:06→13:38)
[2022-12-29 04:42] VITALS: BP 91/45
[2022-12-29 05:46] LABS: BASOPHILS % (AUTO) 0.5 % (0.0-5.0); HEMATOCRIT 29.8 % (36-48); MEAN CORPUSCULAR HEMOGLOBIN 26.9 pg (27.0-33.0); MEAN CORPUSCULAR HGB CONC 33.6 g/dL (32.0-36.0); MEAN CORPUSCULAR VOLUME 80.1 fL (79-99); MONOCYTES % (AUTO) 12.6 % (3.0-13.0); NEUTROPHILS % (AUTO) 70.6 % (40.0-77.0); PLATELET COUNT (AUTO) 228 K/uL (130-400); RED BLOOD CELL COUNT(AUTO) 3.72 MIL/uL (4.00-5.50); RED CELL DISTRIBUTION WIDTH 14.7 % (11.0-15.5); WHITE BLOOD COUNT (AUTO) 8.8 K/uL (4.8-10.8)
[2022-12-29 06:07] LABS: CREATININE 1.1 mg/dL (0.5-1.5); PHOSPHORUS 4.6 mg/dL (2.5-4.9); POTASSIUM 3.2 mmol/L (3.5-5.1); TOTAL PROTEIN, SERUM 6.4 g/dL (6.0-8.3)
[2022-12-29] MEDS: 0.9%NACL 1000ML 1,000 ML IV SCH ×3 (06:20→20:06)
[2022-12-29 08:00] VITALS: BP 96/53
[2022-12-29] MEDS: SODIUM BICARBONATE 650 MG TAB PO SCH ×2 (09:02→20:11)
[2022-12-29] MEDS: POTASSIUM CHLORIDE 10% ELIXIR 20 MEQ/15 ML UDCUP PO PRN ×3 (09:02→13:39)
[2022-12-29] MEDS: FAMOTIDINE 20MG TAB PO SCH ×2 (09:02→20:06)
[2022-12-29] MEDS: AMILORIDE 5MG TAB PO SCH (11:25)
[2022-12-29 12:00] VITALS: BP 99/52
[2022-12-29 16:00] VITALS: BP 111/65
[2022-12-29] MEDS: DEXTROSE 5% IV SCH (17:24)
[2022-12-29] MEDS: AMPHOTERICIN B LIPOSOME IV SCH (17:24)
[2022-12-29] MEDS: WATER IV SCH (17:24)
[2022-12-29 19:30] VITALS: BP 105/59
[2022-12-29] MEDS: TOPIRAMATE 25 MG TABLET PO SCH (20:06)
[2022-12-29 23:00] VITALS: BP 110/65
[2022-12-30] MEDS: VORICONAZOLE 200 MG TABLET PO SCH ×2 (01:39→14:34)
[2022-12-30 05:29] VITALS: BP 111/53
[2022-12-30 08:00] VITALS: BP 111/68
[2022-12-30] MEDS: FAMOTIDINE 20MG TAB PO SCH ×2 (10:00→20:40)
[2022-12-30] MEDS: SODIUM BICARBONATE 650 MG TAB PO SCH ×2 (10:00→20:40)
[2022-12-30] MEDS: AMILORIDE 5MG TAB PO SCH ×2 (10:00→12:34)
[2022-12-30] MEDS: ENOXAPARIN SODIUM 40 MG/0.4 ML SYRINGE SQ SCH (10:07)
[2022-12-30 12:00] VITALS: BP 114/58
[2022-12-30] MEDS: ACETAMINOPHEN 325 MG TAB PO PRN (13:24)
[2022-12-30] MEDS: ONDANSETRON 4MG INJ IV PRN (13:37)
[2022-12-30 16:00] VITALS: BP 106/60
[2022-12-30] MEDS: WATER IV SCH (17:29)
[2022-12-30] MEDS: DEXTROSE 5% IV SCH (17:29)
[2022-12-30] MEDS: AMPHOTERICIN B LIPOSOME IV SCH (17:29)
[2022-12-30 20:00] VITALS: BP 106/65
[2022-12-30] MEDS: TOPIRAMATE 25 MG TABLET PO SCH (20:40)
[2022-12-30] MEDS: 0.9%NACL 1000ML 1,000 ML IV SCH (23:02)
[2022-12-31] VITALS: BP 115/65
[2022-12-31] MEDS: VORICONAZOLE 200 MG TABLET PO SCH ×2 (01:39→13:33)
[2022-12-31 04:00] VITALS: BP 106/58
[2022-12-31 07:20] LABS: BASOPHILS % (AUTO) 0.4 % (0.0-5.0); EOSINOPHILS % (AUTO) 0.2 % (0.0-8.0); HEMATOCRIT 26.3 % (36-48); LYMPHOCYTES % (AUTO) 10.3 % (21.0-51.0); MEAN CORPUSCULAR HEMOGLOBIN 27.1 pg (27.0-33.0); MEAN CORPUSCULAR HGB CONC 33.8 g/dL (32.0-36.0); MEAN CORPUSCULAR VOLUME 80.2 fL (79-99); MONOCYTES % (AUTO) 11.6 % (3.0-13.0); NEUTROPHILS % (AUTO) 77.1 % (40.0-77.0); PLATELET COUNT (AUTO) 208 K/uL (130-400); RED BLOOD CELL COUNT(AUTO) 3.28 MIL/uL (4.00-5.50); RED CELL DISTRIBUTION WIDTH 14.9 % (11.0-15.5); WHITE BLOOD COUNT (AUTO) 9.9 K/uL (4.8-10.8)
[2022-12-31 07:26] LABS: ALBUMIN 2.5 g/dL (3.5-5.0); CREATININE 0.7 mg/dL (0.5-1.5); MAGNESIUM 1.2 mg/dL (1.80-2.40); TOTAL PROTEIN, SERUM 5.8 g/dL (6.0-8.3)
[2022-12-31 07:27] LABS: % IRON SATURATION 3.8 % (22-44)
[2022-12-31 07:38] LABS: POTASSIUM 2.2 mmol/L (3.5-5.1)
[2022-12-31] MEDS: POTASSIUM CHLORIDE 20MEQ/100ML 100 ML IV PRN (07:42)
[2022-12-31] MEDS: POTASSIUM CHLORIDE 10% ELIXIR 20 MEQ/15 ML UDCUP PO PRN ×3 (07:55→20:16)
[2022-12-31 08:00] VITALS: BP 107/55
[2022-12-31] MEDS: ENOXAPARIN SODIUM 40 MG/0.4 ML SYRINGE SQ SCH (09:00)
[2022-12-31] MEDS: FAMOTIDINE 20MG TAB PO SCH ×2 (10:09→20:15)
[2022-12-31] MEDS: MAGNESIUM OXIDE 400 MG TABLET PO SCH (10:09)
[2022-12-31] MEDS: AMILORIDE 5MG TAB PO SCH ×2 (10:09→12:45)
[2022-12-31] MEDS: SODIUM BICARBONATE 650 MG TAB PO SCH ×2 (10:10→20:15)
[2022-12-31] MEDS ORDERED: PHARMACY COMMUNICATION MISC SCH (11:30)
[2022-12-31 12:00] VITALS: BP 91/61
[2022-12-31 15:10] LABS: MAGNESIUM 1.5 mg/dL (1.80-2.40)
[2022-12-31 16:00] VITALS: BP 108/65
[2022-12-31] MEDS ORDERED: LOPERAMIDE 1 MG/7.5 ML UDCUP PO SCH (17:00)
[2022-12-31] MEDS: WATER IV SCH (17:18)
[2022-12-31] MEDS: AMPHOTERICIN B LIPOSOME IV SCH (17:18)
[2022-12-31] MEDS: LACTOBACILLUS RHAMNOSUS GG 1 EACH CAP.SPRINK PO SCH (17:18)
[2022-12-31] MEDS: DEXTROSE 5% IV SCH (17:18)
[2022-12-31] MEDS: POTASSIUM CHLORIDE 20MEQ/10ML 20 MEQ in 0.9%NACL 1000ML 990 ML IV SCH ×2 (19:00→21:17)
[2022-12-31 20:00] VITALS: BP_SYST 108; BP_SYST 141; BP_DIAS 68; BP_DIAS 82
[2022-12-31] MEDS: TOPIRAMATE 25 MG TABLET PO SCH (20:15)
[2022-12-31] MEDS ORDERED: IRON SUCROSE COMPLEX 300 MG in 0.9% NACL 250ML 250 ML IV ONE (21:00)
[2022-12-31] MEDS: MAGNESIUM 2GM PREMIX 50ML 50 ML IV PRN (22:42)
[2023-01-01] VITALS: BP 121/76
[2023-01-01] MEDS: VORICONAZOLE 200 MG TABLET PO SCH ×2 (01:56→15:26)
[2023-01-01 04:00] VITALS: BP 100/56
[2023-01-01] MEDS: POTASSIUM CHLORIDE 20MEQ/10ML 20 MEQ in 0.9%NACL 1000ML 990 ML IV SCH ×2 (05:00→15:27)
[2023-01-01 07:15] LABS: POTASSIUM 3.2 mmol/L (3.5-5.1)
[2023-01-01 07:25] LABS: ALBUMIN 2.6 g/dL (3.5-5.0); CREATININE 0.8 mg/dL (0.5-1.5); MAGNESIUM 1.9 mg/dL (1.80-2.40); TOTAL PROTEIN, SERUM 5.8 g/dL (6.0-8.3)
[2023-01-01 08:05] VITALS: BP 109/65
[2023-01-01] MEDS: MAGNESIUM OXIDE 400 MG TABLET PO SCH ×2 (09:00→09:33)
[2023-01-01] MEDS: SODIUM BICARBONATE 650 MG TAB PO SCH ×3 (09:00→20:56)
[2023-01-01] MEDS: ENOXAPARIN SODIUM 40 MG/0.4 ML SYRINGE SQ SCH ×2 (09:33→09:47)
[2023-01-01] MEDS: AMILORIDE 5MG TAB PO SCH ×2 (09:33→11:30)
[2023-01-01] MEDS: FAMOTIDINE 20MG TAB PO SCH ×2 (09:33→20:56)
[2023-01-01] MEDS: LACTOBACILLUS RHAMNOSUS GG 1 EACH CAP.SPRINK PO SCH ×3 (09:36→15:33)
[2023-01-01 11:00] VITALS: BP 107/68
[2023-01-01 12:25] LABS: BASOPHILS % (AUTO) 0.4 % (0.0-5.0); EOSINOPHILS % (AUTO) 1.1 % (0.0-8.0); HEMATOCRIT 29.6 % (36-48); MEAN CORPUSCULAR HEMOGLOBIN 26.7 pg (27.0-33.0); MEAN CORPUSCULAR HGB CONC 33.4 g/dL (32.0-36.0); MEAN CORPUSCULAR VOLUME 79.8 fL (79-99); MONOCYTES % (AUTO) 12.6 % (3.0-13.0); NEUTROPHILS % (AUTO) 68.5 % (40.0-77.0); PLATELET COUNT (AUTO) 237 K/uL (130-400); RED BLOOD CELL COUNT(AUTO) 3.71 MIL/uL (4.00-5.50); RED CELL DISTRIBUTION WIDTH 14.7 % (11.0-15.5); WHITE BLOOD COUNT (AUTO) 8.1 K/uL (4.8-10.8)
[2023-01-01] MEDS: KCL 20 MEQ ERTAB PO PRN ×3 (15:28→20:56)
[2023-01-01 16:00] VITALS: BP 120/65
[2023-01-01] MEDS: DEXTROSE 5% IV SCH (17:26)
[2023-01-01] MEDS: WATER IV SCH (17:26)
[2023-01-01] MEDS: AMPHOTERICIN B LIPOSOME IV SCH (17:26)
[2023-01-01 17:31] LABS: MAGNESIUM 1.9 mg/dL (1.80-2.40); POTASSIUM 3.2 mmol/L (3.5-5.1)
[2023-01-01 19:53] VITALS: BP 126/79
[2023-01-01] MEDS: TOPIRAMATE 25 MG TABLET PO SCH (20:56)
[2023-01-02] VITALS: BP 107/63
[2023-01-02] MEDS: POTASSIUM CHLORIDE 20MEQ/10ML 20 MEQ in 0.9%NACL 1000ML 990 ML IV SCH ×3 (02:49→20:11)
[2023-01-02] MEDS: VORICONAZOLE 200 MG TABLET PO SCH ×2 (02:50→12:39)
[2023-01-02 04:18] VITALS: BP 107/61
[2023-01-02 04:34] LABS: BASOPHILS % (AUTO) 0.5 % (0.0-5.0); EOSINOPHILS % (AUTO) 1.9 % (0.0-8.0); LYMPHOCYTES % (AUTO) 29.3 % (21.0-51.0); MEAN CORPUSCULAR HEMOGLOBIN 26.6 pg (27.0-33.0); MEAN CORPUSCULAR HGB CONC 32.9 g/dL (32.0-36.0); MEAN CORPUSCULAR VOLUME 80.9 fL (79-99); MONOCYTES % (AUTO) 12.4 % (3.0-13.0); NEUTROPHILS % (AUTO) 54.9 % (40.0-77.0); PLATELET COUNT (AUTO) 258 K/uL (130-400); RED BLOOD CELL COUNT(AUTO) 3.46 MIL/uL (4.00-5.50); RED CELL DISTRIBUTION WIDTH 14.8 % (11.0-15.5); WHITE BLOOD COUNT (AUTO) 6.3 K/uL (4.8-10.8)
[2023-01-02 04:59] LABS: ALBUMIN 2.7 g/dL (3.5-5.0); CREATININE 0.7 mg/dL (0.5-1.5); MAGNESIUM 1.6 mg/dL (1.80-2.40); TOTAL PROTEIN, SERUM 5.9 g/dL (6.0-8.3)
[2023-01-02 05:05] LABS: POTASSIUM 2.9 mmol/L (3.5-5.1)
[2023-01-02] MEDS: POTASSIUM CHLORIDE 20MEQ/100ML 100 ML IV PRN ×2 (05:39→10:14)
[2023-01-02 07:30] VITALS: BP 124/81
[2023-01-02] MEDS: AMILORIDE 5MG TAB PO SCH (09:31)
[2023-01-02] MEDS: MAGNESIUM OXIDE 400 MG TABLET PO SCH (10:12)
[2023-01-02] MEDS: SODIUM BICARBONATE 650 MG TAB PO SCH ×2 (10:12→20:12)
[2023-01-02] MEDS: FAMOTIDINE 20MG TAB PO SCH ×2 (10:12→20:11)
[2023-01-02] MEDS: LACTOBACILLUS RHAMNOSUS GG 1 EACH CAP.SPRINK PO SCH ×3 (10:12→17:27)
[2023-01-02] MEDS: ENOXAPARIN SODIUM 40 MG/0.4 ML SYRINGE SQ SCH (10:13)
[2023-01-02 11:00] VITALS: BP 112/68
[2023-01-02] MEDS: KCL 20 MEQ ERTAB PO PRN ×2 (15:19→20:13)
[2023-01-02] MEDS: MAGNESIUM 2GM PREMIX 50ML 50 ML IV PRN (15:19)
[2023-01-02 16:00] VITALS: BP 108/77
[2023-01-02] MEDS: AMPHOTERICIN B LIPOSOME IV SCH (17:32)
[2023-01-02] MEDS: WATER IV SCH (17:32)
[2023-01-02] MEDS: DEXTROSE 5% IV SCH (17:32)
[2023-01-02 18:22] LABS: MAGNESIUM 2.6 mg/dL (1.80-2.40)
[2023-01-02 20:00] VITALS: BP 125/75
[2023-01-02] MEDS: TOPIRAMATE 25 MG TABLET PO SCH (20:12)
[2023-01-03] VITALS (7 sets, daily range): BP systolic 98–138; BP diastolic 56–73
[2023-01-03] MEDS: KCL 20 MEQ ERTAB PO PRN ×4 (01:57→12:17)
[2023-01-03] MEDS: VORICONAZOLE 200 MG TABLET PO SCH ×2 (01:57→14:08)
[2023-01-03 04:41] LABS: BASOPHILS % (AUTO) 0.8 % (0.0-5.0); EOSINOPHILS % (AUTO) 1.9 % (0.0-8.0); HEMATOCRIT 27.9 % (36-48); LYMPHOCYTES % (AUTO) 31.1 % (21.0-51.0); MEAN CORPUSCULAR HEMOGLOBIN 26.7 pg (27.0-33.0); MEAN CORPUSCULAR HGB CONC 33.3 g/dL (32.0-36.0); MEAN CORPUSCULAR VOLUME 80.2 fL (79-99); NEUTROPHILS % (AUTO) 50.6 % (40.0-77.0); PLATELET COUNT (AUTO) 268 K/uL (130-400); RED BLOOD CELL COUNT(AUTO) 3.48 MIL/uL (4.00-5.50); RED CELL DISTRIBUTION WIDTH 14.6 % (11.0-15.5); WHITE BLOOD COUNT (AUTO) 6.4 K/uL (4.8-10.8)
[2023-01-03 05:55] LABS: ALBUMIN 2.8 g/dL (3.5-5.0); CREATININE 0.7 mg/dL (0.5-1.5); POTASSIUM 3.3 mmol/L (3.5-5.1)
[2023-01-03] MEDS: POTASSIUM CHLORIDE 20MEQ/10ML 20 MEQ in 0.9%NACL 1000ML 990 ML IV SCH ×2 (06:38→16:51)
[2023-01-03] MEDS: MAGNESIUM OXIDE 400 MG TABLET PO SCH (09:39)
[2023-01-03] MEDS: LACTOBACILLUS RHAMNOSUS GG 1 EACH CAP.SPRINK PO SCH ×3 (09:40→16:51)
[2023-01-03] MEDS: FAMOTIDINE 20MG TAB PO SCH ×2 (09:40→20:40)
[2023-01-03] MEDS: SODIUM BICARBONATE 650 MG TAB PO SCH ×2 (09:40→20:40)
[2023-01-03] MEDS: AMILORIDE 5MG TAB PO SCH ×2 (09:40→11:07)
[2023-01-03] MEDS: AMPHOTERICIN B LIPOSOME IV SCH (18:21)
[2023-01-03] MEDS: WATER IV SCH (18:21)
[2023-01-03] MEDS: DEXTROSE 5% IV SCH (18:21)
[2023-01-03] MEDS: TOPIRAMATE 25 MG TABLET PO SCH (20:40)
[2023-01-03] MEDS: ONDANSETRON 4MG INJ IV PRN (20:47)
[2023-01-04] MEDS: VORICONAZOLE 200 MG TABLET PO SCH ×2 (02:18→14:37)
[2023-01-04 04:31] VITALS: BP 113/67
[2023-01-04] MEDS: POTASSIUM CHLORIDE 20MEQ/10ML 20 MEQ in 0.9%NACL 1000ML 990 ML IV SCH ×3 (05:44→22:24)
[2023-01-04] MEDS: ACETAMINOPHEN 325 MG TAB PO PRN (06:44)
[2023-01-04 07:04] LABS: BASOPHILS % (AUTO) 0.6 % (0.0-5.0); EOSINOPHILS % (AUTO) 0.6 % (0.0-8.0); HEMATOCRIT 29.4 % (36-48); LYMPHOCYTES % (AUTO) 26.8 % (21.0-51.0); MEAN CORPUSCULAR HEMOGLOBIN 26.4 pg (27.0-33.0); MEAN CORPUSCULAR HGB CONC 33.3 g/dL (32.0-36.0); MEAN CORPUSCULAR VOLUME 79.2 fL (79-99); MONOCYTES % (AUTO) 12.5 % (3.0-13.0); NEUTROPHILS % (AUTO) 58.8 % (40.0-77.0); PLATELET COUNT (AUTO) 256 K/uL (130-400); RED BLOOD CELL COUNT(AUTO) 3.71 MIL/uL (4.00-5.50); RED CELL DISTRIBUTION WIDTH 14.6 % (11.0-15.5); WHITE BLOOD COUNT (AUTO) 6.7 K/uL (4.8-10.8)
[2023-01-04 07:25] LABS: ALBUMIN 2.8 g/dL (3.5-5.0); CREATININE 0.7 mg/dL (0.5-1.5); MAGNESIUM 1.6 mg/dL (1.80-2.40); POTASSIUM 3.3 mmol/L (3.5-5.1); TOTAL PROTEIN, SERUM 6.2 g/dL (6.0-8.3)
[2023-01-04] MEDS: MAGNESIUM 2GM PREMIX 50ML 50 ML IV PRN ×2 (07:36→20:51)
[2023-01-04 08:04] VITALS: BP 109/73
[2023-01-04] MEDS: MAGNESIUM OXIDE 400 MG TABLET PO SCH (09:22)
[2023-01-04] MEDS: LACTOBACILLUS RHAMNOSUS GG 1 EACH CAP.SPRINK PO SCH ×3 (09:23→17:09)
[2023-01-04] MEDS: FAMOTIDINE 20MG TAB PO SCH ×2 (09:23→20:50)
[2023-01-04] MEDS: ENOXAPARIN SODIUM 40 MG/0.4 ML SYRINGE SQ SCH (09:24)
[2023-01-04] MEDS: SODIUM BICARBONATE 650 MG TAB PO SCH ×2 (09:29→20:51)
[2023-01-04] MEDS: AMILORIDE 5MG TAB PO SCH (09:29)
[2023-01-04 11:53] VITALS: BP 94/56
[2023-01-04] MEDS: ACETAMINOPHEN WITH CODEINE 1 TAB TAB PO PRN (14:37)
[2023-01-04 16:00] VITALS: BP 100/62
[2023-01-04] MEDS: DEXTROSE 5% IV SCH (17:50)
[2023-01-04] MEDS: WATER IV SCH (17:50)
[2023-01-04] MEDS: AMPHOTERICIN B LIPOSOME IV SCH (17:50)
[2023-01-04 18:18] LABS: MAGNESIUM 1.7 mg/dL (1.80-2.40)
[2023-01-04 20:31] VITALS: BP 106/66
[2023-01-04] MEDS: TOPIRAMATE 25 MG TABLET PO SCH (20:51)
[2023-01-04] MEDS: POTASSIUM CHLORIDE 10% ELIXIR 20 MEQ/15 ML UDCUP PO PRN (22:26)
[2023-01-04] MEDS: ONDANSETRON 4MG INJ IV PRN (22:26)
[2023-01-05] VITALS: BP 111/66
[2023-01-05] MEDS: POTASSIUM CHLORIDE 10% ELIXIR 20 MEQ/15 ML UDCUP PO PRN ×4 (00:05→18:37)
[2023-01-05] MEDS: VORICONAZOLE 200 MG TABLET PO SCH ×2 (02:17→13:57)
[2023-01-05 04:00] VITALS: BP 101/60
[2023-01-05 05:43] LABS: CREATININE 0.7 mg/dL (0.5-1.5); MAGNESIUM 1.9 mg/dL (1.80-2.40); POTASSIUM 3.6 mmol/L (3.5-5.1); TOTAL PROTEIN, SERUM 6.2 g/dL (6.0-8.3)
[2023-01-05 08:00] VITALS: BP 111/54
[2023-01-05] MEDS: AMILORIDE 5MG TAB PO SCH ×3 (08:01→12:00)
[2023-01-05] MEDS: LACTOBACILLUS RHAMNOSUS GG 1 EACH CAP.SPRINK PO SCH ×3 (09:04→18:37)
[2023-01-05] MEDS: POTASSIUM CHLORIDE 20MEQ/10ML 20 MEQ in 0.9%NACL 1000ML 990 ML IV SCH ×2 (09:04→20:34)
[2023-01-05] MEDS: MAGNESIUM OXIDE 400 MG TABLET PO SCH (09:04)
[2023-01-05] MEDS: FAMOTIDINE 20MG TAB PO SCH ×2 (09:05→20:33)
[2023-01-05] MEDS: SODIUM BICARBONATE 650 MG TAB PO SCH ×2 (09:05→20:33)
[2023-01-05] MEDS: ENOXAPARIN SODIUM 40 MG/0.4 ML SYRINGE SQ SCH (09:05)
[2023-01-05 12:00] VITALS: BP 110/65
[2023-01-05 16:00] VITALS: BP 111/63
[2023-01-05 18:25] LABS: MAGNESIUM 1.8 mg/dL (1.80-2.40); POTASSIUM 3.6 mmol/L (3.5-5.1)
[2023-01-05] MEDS: AMPHOTERICIN B LIPOSOME IV SCH (18:58)
[2023-01-05] MEDS: WATER IV SCH (18:58)
[2023-01-05] MEDS: DEXTROSE 5% IV SCH (18:58)
[2023-01-05 19:00] VITALS: BP 112/67
[2023-01-05] MEDS: TOPIRAMATE 25 MG TABLET PO SCH (20:33)
[2023-01-06 00:14] VITALS: BP 124/73
[2023-01-06] MEDS: VORICONAZOLE 200 MG TABLET PO SCH ×2 (02:13→18:18)
[2023-01-06 04:00] VITALS: BP 103/62
[2023-01-06 05:08] LABS: BASOPHILS % (AUTO) 0.8 % (0.0-5.0); EOSINOPHILS % (AUTO) 1.4 % (0.0-8.0); HEMATOCRIT 28.6 % (36-48); LYMPHOCYTES % (AUTO) 25.3 % (21.0-51.0); MEAN CORPUSCULAR HEMOGLOBIN 26.6 pg (27.0-33.0); MEAN CORPUSCULAR HGB CONC 32.9 g/dL (32.0-36.0); NEUTROPHILS % (AUTO) 57.9 % (40.0-77.0); PLATELET COUNT (AUTO) 208 K/uL (130-400); RED BLOOD CELL COUNT(AUTO) 3.53 MIL/uL (4.00-5.50); RED CELL DISTRIBUTION WIDTH 14.8 % (11.0-15.5); WHITE BLOOD COUNT (AUTO) 6.6 K/uL (4.8-10.8)
[2023-01-06 05:30] LABS: ALBUMIN 2.7 g/dL (3.5-5.0); CREATININE 0.6 mg/dL (0.5-1.5); MAGNESIUM 1.7 mg/dL (1.80-2.40); POTASSIUM 3.6 mmol/L (3.5-5.1)
[2023-01-06] MEDS: POTASSIUM CHLORIDE 20MEQ/10ML 20 MEQ in 0.9%NACL 1000ML 990 ML IV SCH ×2 (05:31→15:00)
[2023-01-06] MEDS: POTASSIUM CHLORIDE 10% ELIXIR 20 MEQ/15 ML UDCUP PO PRN ×2 (06:31→09:21)
[2023-01-06 08:00] VITALS: BP 108/67
[2023-01-06] MEDS: MAGNESIUM OXIDE 400 MG TABLET PO SCH (09:12)
[2023-01-06] MEDS: LACTOBACILLUS RHAMNOSUS GG 1 EACH CAP.SPRINK PO SCH ×3 (09:13→18:17)
[2023-01-06] MEDS: AMILORIDE 5MG TAB PO SCH (09:13)
[2023-01-06] MEDS: FAMOTIDINE 20MG TAB PO SCH ×2 (09:14→20:20)
[2023-01-06] MEDS: SODIUM BICARBONATE 650 MG TAB PO SCH ×2 (09:14→20:20)
[2023-01-06] MEDS: ENOXAPARIN SODIUM 40 MG/0.4 ML SYRINGE SQ SCH (09:14)
[2023-01-06] MEDS: MAGNESIUM 2GM PREMIX 50ML 50 ML IV PRN (09:21)
[2023-01-06] MEDS: ACETAMINOPHEN WITH CODEINE 1 TAB TAB PO PRN (09:43)
[2023-01-06 12:00] VITALS: BP 94/53
[2023-01-06 16:00] VITALS: BP 107/71
[2023-01-06] MEDS: AMPHOTERICIN B LIPOSOME IV SCH (18:17)
[2023-01-06] MEDS: WATER IV SCH (18:17)
[2023-01-06] MEDS: DEXTROSE 5% IV SCH (18:17)
[2023-01-06 20:10] VITALS: BP 113/69
[2023-01-06] MEDS: ONDANSETRON 4MG INJ IV PRN (20:20)
[2023-01-06] MEDS: TOPIRAMATE 25 MG TABLET PO SCH (20:20)
[2023-01-07 00:59] VITALS: BP 109/68
[2023-01-07] MEDS: POTASSIUM CHLORIDE 20MEQ/10ML 20 MEQ in 0.9%NACL 1000ML 990 ML IV SCH ×3 (01:09→20:30)
[2023-01-07] MEDS: VORICONAZOLE 200 MG TABLET PO SCH ×2 (01:09→14:03)
[2023-01-07 04:18] VITALS: BP 105/61
[2023-01-07 05:51] LABS: BASOPHILS % (AUTO) 0.8 % (0.0-5.0); EOSINOPHILS % (AUTO) 1.6 % (0.0-8.0); HEMATOCRIT 30.7 % (36-48); LYMPHOCYTES % (AUTO) 26.9 % (21.0-51.0); MEAN CORPUSCULAR HEMOGLOBIN 26.8 pg (27.0-33.0); MEAN CORPUSCULAR HGB CONC 33.2 g/dL (32.0-36.0); MEAN CORPUSCULAR VOLUME 80.8 fL (79-99); MONOCYTES % (AUTO) 11.8 % (3.0-13.0); NEUTROPHILS % (AUTO) 58.1 % (40.0-77.0); PLATELET COUNT (AUTO) 270 K/uL (130-400); RED CELL DISTRIBUTION WIDTH 14.8 % (11.0-15.5); WHITE BLOOD COUNT (AUTO) 6.3 K/uL (4.8-10.8)
[2023-01-07 06:14] LABS: ALBUMIN 2.8 g/dL (3.5-5.0); CREATININE 0.8 mg/dL (0.5-1.5); MAGNESIUM 1.9 mg/dL (1.80-2.40); POTASSIUM 3.2 mmol/L (3.5-5.1); TOTAL PROTEIN, SERUM 6.3 g/dL (6.0-8.3)
[2023-01-07] MEDS: MAGNESIUM 2GM PREMIX 50ML 50 ML IV PRN (06:34)
[2023-01-07] MEDS: KCL 20 MEQ ERTAB PO PRN (06:34)
[2023-01-07] MEDS: POTASSIUM CHLORIDE 10% ELIXIR 20 MEQ/15 ML UDCUP PO PRN ×3 (06:41→20:31)
[2023-01-07 07:30] VITALS: BP 101/59
[2023-01-07] MEDS: AMILORIDE 5MG TAB PO SCH ×2 (07:58→09:00)
[2023-01-07] MEDS: MAGNESIUM OXIDE 400 MG TABLET PO SCH (09:00)
[2023-01-07] MEDS: LACTOBACILLUS RHAMNOSUS GG 1 EACH CAP.SPRINK PO SCH ×3 (09:00→17:45)
[2023-01-07] MEDS: FAMOTIDINE 20MG TAB PO SCH ×2 (09:01→20:30)
[2023-01-07] MEDS: SODIUM BICARBONATE 650 MG TAB PO SCH ×2 (09:01→20:30)
[2023-01-07] MEDS: ENOXAPARIN SODIUM 40 MG/0.4 ML SYRINGE SQ SCH (09:01)
[2023-01-07 11:00] VITALS: BP 108/58
[2023-01-07] MEDS ORDERED: PHARMACY COMMUNICATION MISC SCH (11:30)
[2023-01-07 16:00] VITALS: BP 111/67
[2023-01-07] MEDS: AMPHOTERICIN B LIPOSOME IV SCH (17:44)
[2023-01-07] MEDS: WATER IV SCH (17:44)
[2023-01-07] MEDS: DEXTROSE 5% IV SCH (17:44)
[2023-01-07 20:07] VITALS: BP 114/65
[2023-01-07] MEDS: TOPIRAMATE 25 MG TABLET PO SCH (20:30)
[2023-01-07] MEDS: LACTULOSE 20 GM/30 ML UDCUP PO PRN (20:31)
[2023-01-07] MEDS: ONDANSETRON 4MG INJ IV PRN (22:48)
[2023-01-07] MEDS: ACETAMINOPHEN WITH CODEINE 1 TAB TAB PO PRN (22:49)
[2023-01-08 00:25] VITALS: BP 111/68
[2023-01-08] MEDS ORDERED: VORICONAZOLE 200 MG TABLET PO SCH (02:00)
[2023-01-08 04:19] VITALS: BP 107/53
[2023-01-08 05:45] LABS: BASOPHILS % (AUTO) 0.5 % (0.0-5.0); EOSINOPHILS % (AUTO) 1.6 % (0.0-8.0); HEMATOCRIT 28.1 % (36-48); LYMPHOCYTES % (AUTO) 29.3 % (21.0-51.0); MEAN CORPUSCULAR HEMOGLOBIN 26.4 pg (27.0-33.0); MEAN CORPUSCULAR HGB CONC 33.1 g/dL (32.0-36.0); MEAN CORPUSCULAR VOLUME 79.8 fL (79-99); MONOCYTES % (AUTO) 10.4 % (3.0-13.0); NEUTROPHILS % (AUTO) 57.7 % (40.0-77.0); PLATELET COUNT (AUTO) 223 K/uL (130-400); RED BLOOD CELL COUNT(AUTO) 3.52 MIL/uL (4.00-5.50); RED CELL DISTRIBUTION WIDTH 14.8 % (11.0-15.5); WHITE BLOOD COUNT (AUTO) 5.8 K/uL (4.8-10.8)
[2023-01-08 06:07] LABS: ALBUMIN 2.8 g/dL (3.5-5.0); CREATININE 0.6 mg/dL (0.5-1.5); POTASSIUM 3.2 mmol/L (3.5-5.1)
[2023-01-08] MEDS: POTASSIUM CHLORIDE 20MEQ/10ML 20 MEQ in 0.9%NACL 1000ML 990 ML IV SCH ×2 (07:12→17:15)
[2023-01-08 08:00] VITALS: BP 112/63
[2023-01-08] MEDS: LACTOBACILLUS RHAMNOSUS GG 1 EACH CAP.SPRINK PO SCH ×3 (08:46→17:15)
[2023-01-08] MEDS: MAGNESIUM OXIDE 400 MG TABLET PO SCH (08:46)
[2023-01-08] MEDS: FAMOTIDINE 20MG TAB PO SCH (08:47)
[2023-01-08] MEDS: SODIUM BICARBONATE 650 MG TAB PO SCH (08:47)
[2023-01-08] MEDS: AMILORIDE 5MG TAB PO SCH ×2 (08:47→10:08)
[2023-01-08] MEDS: ENOXAPARIN SODIUM 40 MG/0.4 ML SYRINGE SQ SCH (08:48)
[2023-01-08] MEDS: POTASSIUM CHLORIDE 10% ELIXIR 20 MEQ/15 ML UDCUP PO PRN ×3 (08:49→17:18)
[2023-01-08] MEDS: ACETAMINOPHEN 325 MG TAB PO PRN (09:51)
[2023-01-08 12:00] VITALS: BP 113/60
[2023-01-08] MEDS: VORICONAZOLE 200 MG TABLET PO SCH (14:11)
[2023-01-08 16:00] VITALS: BP 114/72
[2023-01-08] MEDS: DEXTROSE 5% IV SCH (17:36)
[2023-01-08] MEDS: WATER IV SCH (17:36)
[2023-01-08] MEDS: AMPHOTERICIN B LIPOSOME IV SCH (17:36)
== END 2023-01-08 20:00 | disposition short-term general hospital (02) | DRG 98 ==
LOC: EDH 21:09 → EDHIP 21:10 → 3CH 12-12 04:31 → 3DH 12-23 02:45
PROVIDERS: ADMIT Hospitalist; ATTEND Hospitalist
PROC: 009U3ZX Drainage of Spinal Canal, Percutaneous Approach, Diagnostic (ICD-10-PCS; principal; 2022-12-12)
PROC: 009U3ZX Drainage of Spinal Canal, Percutaneous Approach, Diagnostic (ICD-10-PCS; 2022-12-19)
DX: G03.8 Meningitis due to other specified causes (principal); E87.20 Acidosis, unspecified; N30.00 Acute cystitis without hematuria; N17.9 Acute kidney failure, unspecified; Z20.822 Contact with and (suspected) exposure to COVID-19; E87.6 Hypokalemia; K52.9 Noninfective gastroenteritis and colitis, unspecified; G43.909 Migraine, unspecified, not intractable, without status migrainosus; D64.9 Anemia, unspecified; E83.42 Hypomagnesemia; N25.89 Other disorders resulting from impaired renal tubular function; Z79.899 Other long term (current) drug therapy
CPT/HCPCS: 36415; 62270; 70450; 70543; 70553; 71045; 80048; 80053; 80202; 80305; 81001; 81025; 82945; 83540; 83550; 83735; 84100; 84132; 84145; 84157; 85025; 85027; 85610; 85730; 86140; 86606; 86612; 87040; 87071; 87088; 87101; 87116; 87205; 87206; 87324; 87483; 87635; 87804; 89051; C1894; G0378; J0289; J0290; J0696; J1170; J1650; J1756; J1885; J2270; J2405; J2920; J3370; J3475; J3480; J7030; J7050; J7060